=== PATIENT | male | born 1990 | race Caucasian/White ===

== ENCOUNTER 2016-12-08 19:00 | Emergency (ER) | payer SELFPAY ==
--- NOTE | 2016-12-08 20:29 | UC ---
Upper Extremity HPI - HPI Summary HPI Summary: 26 y/o female presents to the urgent care c/o RT shoulder pain for the past 3 weeks. He can't recall any injury to his shoulder. Pain started gradually and now is 8/10 w/ movement and 6/10 at rest. Pt has difficulty raising arm. Pt has been taking ibuprofen on and off to alleviate symptoms. Pt denies numbness and tingling over the arm or hand, fever, chest pain, N/V/D. - History of Current Complaint Chief Complaint: UCUpperExtremity Stated Complaint: SHOULDER INJURY Time Seen by Provider: 12/08/16 20:28 Hx Obtained From: Patient Onset/Duration: Gradual Onset, Lasting Weeks - 3 weeks, Still Present Severity Initially: Mild Severity Currently: Severe Pain Intensity: 8 Pain Scale Used: 0-10 Numeric Location Of Pain: Is Discrete @ - RT shoulder Character: Sharp - at times, Throbbing - at times Aggravating Factor(s): Movement, Lifting, Flexion, Extension Alleviating Factor(s): OTC Meds Associated Signs And Symptoms: Positive: Negative. Negative: Swelling, Redness , Fever, Weakness, Numbness/Tingling - Risk Factors Non-Orthopedic Risk Factor: Negative DVT Risk Factors: Negative Septic Arthritis Risk Factor: Negative - Allergies/Home Medications Allergies/Adverse Reactions: Allergies Allergy/AdvReac Type Severity Reaction Status Date / Time Tramadol Allergy Severe Anaphylatic Verified 12/08/16 19:49 Shock Home Medications: Home Medications Ibuprofen TAB* [Advil TAB*] 800 mg PO ONCE PRN 12/08/16 [History Confirmed 12/08] PMH/Surg Hx/FS Hx/Imm Hx Previously Healthy: Yes - Pt denies PMHX - Surgical History Surgical History: Yes Surgery Procedure, Year, and Place: ORIF RIGHT TIB/FIB - Family History Known Family History: Positive: Diabetes - Social History Occupation: Unemployed Lives: With Family Alcohol Use: Rare Substance Use Type: None Smoking Status (MU): Current Every Day Smoker Type: Cigarettes Amount Used/How Often: 1 PPD Review of Systems Constitutional: Negative Skin: Negative Eyes: Negative ENT: Negative Respiratory: Negative Cardiovascular: Negative Gastrointestinal: Negative Genitourinary: Negative Motor: Negative Neurovascular: Negative Musculoskeletal: Other: - RT shoulder pain Neurological: Negative Psychological: Negative Is Patient Immunocompromised?: No All Other Systems Reviewed And Are Negative: Yes Physical Exam Triage Information Reviewed: Yes Appearance: Well-Appearing, No Pain Distress, Well-Nourished, Obese Vital Signs: Initial Vital Signs Temp 98.7 F 12/08/16 19:45 Pulse 104 12/08/16 19:45 Resp 18 12/08/16 19:45 BP 158/89 12/08/16 19:45 Pulse Ox 97 12/08/16 19:45 Vital Signs Reviewed: Yes Eye Exam: Normal Eyes: Positive: Conjunctiva Clear - PERRLA, EOMI ENT Exam: Normal ENT: Positive: Normal ENT inspection, Hearing grossly normal, Pharynx normal, TMs normal Neck exam: Normal Neck: Positive: Supple, Nontender, No Lymphadenopathy Respiratory Exam: Normal Respiratory: Positive: Chest non-tender, Lungs clear, Normal breath sounds, No respiratory distress Cardiovascular Exam: Normal Cardiovascular: Positive: RRR, No Murmur, Pulses Normal, Brisk Capillary Refill Abdominal Exam: Normal Abdomen Description: Positive: Nontender, No Organomegaly, Soft. Negative: CVA Tenderness (R), CVA Tenderness (L) Bowel Sounds: Positive: Present Musculoskeletal Exam: Normal Musculoskeletal: Positive: No Edema, Other: - Shoulder: The R shoulder is without obvious asymmetry or deformity when compared to the L shoulder. No surface trauma, ecchymosis, crepitus. No bony deformity or prominence of humeral head. No erythema, warmth, swelling . NT to palpation over the clavicle, scapula, or humeral head.point tenderness over the acromoclavicular joint and to palpation of the bicipital groove . No tenderness to palpation of the muscles of the sternoclidomastoid, pectorals, bicepts/triceps, deltoid, trapezius, rhomboid, latissimus dorsi, rotator cuff. Pain and limitation with active or passive abduction/adduction, internal/external rotation, flexion/ extension. negative empty can and drop arm test No axillary tenderness or lympadenopathy. Normal sensation over the deltoid . Distal motor and neurovascular status is intact. Positve pulses and capillary refill brisk Neurological Exam: Normal Psychological Exam: Normal Skin Exam: Normal Upper Extremity Course/Dx - Course Course Of Treatment: 26 y/o female presents to the urgent care c/o RT shoulder pain for the past 3 weeks. He can't recall any injury to his shoulder. Pain started gradually and now is 8/10 w/ movement and 6/10 at rest. Pt has difficulty raising arm. Pt has been taking ibuprofen on and off to alleviate symptoms. Pt denies numbness and tingling over the arm or hand, fever, chest pain, N/V/D.HX obtained. Rt shoulder X-ray ordered, Impression:There was no fracture, dislocation, soft tissue swelling. Pt given Toradol IM inj to alleviate pain. Pt tolerated well IM inj. Pain decrease after 20min. Pt felt better. Pt probably with a frozen shoulder on examination, Pt shoulder immobilized with a shoulder sling.Rx Naproxen PO to alleviate pain. Given a PT referral and Orhtopedic referral for further evaluation and treatment. Pt's BP today is elevated, advised decrease salt in his diet, monitor his BP, if it continues to be elevated advised to f/u with his PCP for further management. Pt understood and agreed with plan of care. Pt left the clinic ambulating. - Differential Dx/Diagnosis Differential Diagnosis/HQI/PQRI: Arthritis, Contusion, Fracture (Closed), Strain , Sprain, Other - frozen shoulder, tendinopathy Provider Diagnoses: 1- RT shoulder pain. 2- Elevated BP w/o Hx of HTN Discharge - Discharge Plan Condition: Stable Disposition: HOME Prescriptions: Naproxen TAB* [Naprosyn 250 mg TAB*] 500 mg PO Q8H PRN #30 tab PRN Reason: Pain Patient Education Materials: Low Sodium Diet (ED), Shoulder Pain (ED) Referrals: Eddie Pascual MD [Medical Doctor] - 3 Days No Primary Care Phys,NOPCP [Primary Care Provider] - Additional Instructions: 1-Please take medications as directed to alleviate pain and swelling. 2-Please apply ice, keep your shoulder immobilized with the sling 3-Follow up PT referral for further evaluation and treatment 3- Please f/u with Orthopedic 3 days if not improvement of symptoms for further evaluation and treatment. 4- Your BP today is elevated, please decrease salt in your diet, monitor your BP , if it continues to be elevated please f/y with your PCP for further management.
--- NOTE | 2016-12-08 21:33 | RAD ---
Indication: RIGHT shoulder pain for 3 weeks. No preceding injury. Comparison: No relevant prior exams available on the [facility] PACS for comparison. Technique: Internal and external rotation AP and scapular Y views RIGHT shoulder Report: Normal acromioclavicular and glenohumeral joint alignment. Negative for fracture. No arthropathic change evident. Negative for stigmata of calcific tendinopathy. Unremarkable soft tissue contours. IMPRESSION: Negative radiographic exam of the RIGHT shoulder.
[2016-12-08] MEDS ORDERED: Ketorolac INJ* 60 MG/2 ML VIAL IM ONE (21:39)
[2016-12-08 21:58] VITALS: BP 148/85
== END 2016-12-08 22:02 | disposition home or self-care (01) ==
LOC: UCEAST 19:00
DX: M25.511 Pain in right shoulder (principal); R03.0 Elevated blood-pressure reading, without diagnosis of hypertension; E66.9 Obesity, unspecified; Z88.5 Allergy status to narcotic agent; F17.210 Nicotine dependence, cigarettes, uncomplicated
CPT/HCPCS: 96372; 99203; G0463; J1885

== ENCOUNTER 2017-05-07 19:25 | Emergency (ER) | payer SELFPAY ==
[2017-05-07 19:45] VITALS: BP 134/89
--- NOTE | 2017-05-07 19:55 | UC ---
Shoulder Pain HPI - HPI Summary HPI Summary: Pt presents with left shoulder pain s/p fall 3 days ago. He tells me that he slipped and fell on the ice 3 days ago and all of his weight landed on his left shoulder/arm. Did not hit his head. He had immediate pain, but slightly improved as the day progressed. Since that time has been taking ibuprofen and naproxen with little relief. The majority of his pain is in his lateral left shoulder. He denies numbness, tingling, arm or neck pain, or previous injury. - History of Current Complaint Hx Obtained From: Patient Onset/Duration: Sudden Onset Timing: Constant Severity Initially: Severe Severity Currently: Severe Pain Intensity: 8 Pain Scale Used: 0-10 Numeric Character: Dull, Aching, Stiffness Aggravating Factor(s): Movement, Lifting, Flexion Alleviating Factor(s): Rest <Shubham Perez - Last Filed: 05/08/17 17:45> <Omayra Villa - Last Filed: 05/09/17 07:13> - History of Current Complaint Chief Complaint: UCUpperExtremity Stated Complaint: SHOULDER PAIN Time Seen by Provider: 05/07/17 19:54 - Allergies/Home Medications Allergies/Adverse Reactions: Allergies Allergy/AdvReac Type Severity Reaction Status Date / Time MS Tramadol [Tramadol] Allergy Severe Anaphylatic Verified 05/07/17 19:46 Shock PMH/Surg Hx/FS Hx/Imm Hx Previously Healthy: Yes - Surgical History Surgical History: Yes Surgery Procedure, Year, and Place: ORIF RIGHT TIB/FIB - Family History Known Family History: Positive: Diabetes - Social History Occupation: Employed Full-time Lives: With Family Alcohol Use: Rare Substance Use Type: None Smoking Status (MU): Current Every Day Smoker Type: Cigarettes Amount Used/How Often: 1 PPD <Shubham Perez - Last Filed: 05/08/17 17:45> Review of Systems Constitutional: Negative Skin: Negative Respiratory: Negative Cardiovascular: Negative Neurovascular: Negative Musculoskeletal: Decreased ROM - left shoulder, Other: - Left shoulder pain Neurological: Negative Psychological: Negative All Other Systems Reviewed And Are Negative: Yes <Shubham Perez - Last Filed: 05/08/17 17:45> Physical Exam Triage Information Reviewed: Yes Appearance: Well-Appearing, No Pain Distress, Well-Nourished Vital Signs: Initial Vital Signs Temp 98.7 F 05/07/17 19:41 Pulse 97 05/07/17 19:41 Resp 16 05/07/17 19:41 BP 134/89 05/07/17 19:41 Pulse Ox 97 05/07/17 19:41 Vital Signs Reviewed: Yes Neck: Positive: Supple, No Lymphadenopathy, Other: - NTTP. FROM. Respiratory: Positive: Lungs clear, Normal breath sounds, No respiratory distress, No accessory muscle use Cardiovascular: Positive: RRR, No Murmur, Pulses Normal - Left radial and ulnar Musculoskeletal: Positive: No Edema - Left shoulder, Strength Limited @ - Left shoulder 4/5 compared to right, ROM Limited @ - Left shoulder due to pain. Flexion to 45 deg before pain., Other: - Left shoulder: TTP over lateral aspect of left shouler - around deltoid. No edema or obvious bony deformities. Negative apleys, apprehension, empty can, jaime-josh, near, monteiro, and yergason tests. Neurological: Positive: Alert, Other: - Sensations intact left C4-T1 Psychological: Positive: Age Appropriate Behavior Skin: Positive: Other - No erythema, abrasions, or ecchymosis left shoulder. Negative: rashes <Shubham Perez - Last Filed: 05/08/17 17:45> Vital Signs: Initial Vital Signs Temp 98.7 F 05/07/17 19:41 Pulse 97 05/07/17 19:41 Resp 16 05/07/17 19:41 BP 134/89 05/07/17 19:41 Pulse Ox 97 05/07/17 19:41 <Omayra Villa - Last Filed: 05/09/17 07:13> Shoulder Course/Dx - Course Course Of Treatment: Shoulder XR: IMPRESSION: No fracture of the left shoulder is noted. I suspect this is a shoulder contusion, but will provide him with a referral to orthopedics should his discomfort persist longer than 7-10days. Toradol IM in clinic today. Rx for flexeril at bedtime and meloxicam. I advised that he take at least one day off of work to rest and ice his shoulder, but he said that he is unable to do so and needs to work. - Differential Dx/Diagnosis Provider Diagnoses: Left shoulder pain. Fall <Shubham Perez - Last Filed: 05/08/17 17:45> Discharge <Shubham Peerz - Last Filed: 05/08/17 17:45> <Omayra Villa - Last Filed: 05/09/17 07:13> - Discharge Plan Condition: Stable Disposition: HOME Prescriptions: Cyclobenzaprine TAB* [Flexeril 10 MG TAB*] 10 mg PO BEDTIME PRN #10 tab PRN Reason: Pain Meloxicam 7.5 mg PO BID PRN #14 tablet PRN Reason: Pain Patient Education Materials: Shoulder Sprain (ED) Referrals: No Primary Care Phys,NOPCP [Primary Care Provider] - Dean Coats MD [Medical Doctor] - If Needed Additional Instructions: If you develop a fever, shortness of breath, chest pain, new or worsening symptoms - please call your PCP or go to the ED. Your blood pressure was high at todays visit. Please see your primary provider within 4 weeks for recheck and re-evaluation. 1) Ice your shoulder and rest as much as possible over the next 24-48 hours 2) Please do not take ibuprofen or naproxen in addition to Meloxicam as these medications are related and may interact. 3) If your symptoms worsen or persist greater than 7-10 days, please call orthopedics at the number below for a follow up appointment. Attestation Statement User Type: Provider - I was available for consult. This patient was seen by the advanced practice provider. The patient was not presented to, seen by, or examined by me.-Raysa <Omayra Villa - Last Filed: 05/09/17 07:13>
--- NOTE | 2017-05-07 20:12 | RAD ---
Indication: Fall, left shoulder pain. 4 views of left shoulder demonstrates no fracture. No other bone or joint abnormality is identified. IMPRESSION: No fracture of the left shoulder is noted.
[2017-05-07] MEDS ORDERED: Ketorolac INJ* 60 MG/2 ML VIAL IM ONE (20:19)
== END 2017-05-07 20:33 | disposition home or self-care (01) ==
LOC: UCEAST 19:25
DX: M25.512 Pain in left shoulder (principal); Z88.5 Allergy status to narcotic agent; F17.210 Nicotine dependence, cigarettes, uncomplicated
CPT/HCPCS: 96372; 99212; G0463; J1885

== ENCOUNTER 2017-05-28 18:17 | Emergency (ER) | payer SELFPAY ==
[2017-05-28 19:01] VITALS: BP 148/84
--- NOTE | 2017-05-28 20:30 | UC ---
Ciro Lindsey Natalie, scribed for Al Barnes MD on 05/28/17 at 1925 . Abdominal Pain Male HPI - HPI Summary HPI Summary: The pt is a 27 y/o M presenting to [facility] c/o swelling in right upper chest for two weeks, worsening since last night. The swelling doubled in size since yesterday. The pain is rated 7/10. The pain is aggravated by movement. Pt additionally c/o SOB. Pt denies abnormal urination and BM and injury to chest. - History of Current Complaint Chief Complaint: UCAbdominalPain Stated Complaint: SWELLING IN CHEST AREA Time Seen by Provider: 05/28/17 19:10 Hx Obtained From: Patient Onset/Duration: Lasting Weeks - started two weeks ago, Still Present, Worse Since - last night Timing: Constant Severity Initially: Moderate Severity Currently: Moderate Pain Intensity: 7 Pain Scale Used: 0-10 Numeric Location: Discrete At: RUQ - under right ribs Radiates: No Aggravating Factor(s): Movement Alleviating Factor(s): Nothing Associated Signs And Symptoms: Positive: Other - POSITIVE: SOB; NEGATIVE: abnormal urination and BM, injury to chest - Allergies/Home Medications Allergies/Adverse Reactions: Allergies Allergy/AdvReac Type Severity Reaction Status Date / Time bee venom protein (honey bee) Allergy Severe Hives Verified 05/28/17 19:01 tramadol Allergy Severe Anaphylatic Verified 05/28/17 19:01 Shock Home Medications: Home Medications Ibuprofen TAB* [Advil TAB*] 800 mg PO ONCE PRN 05/28/17 [History Confirmed 05/28] PMH/Surg Hx/FS Hx/Imm Hx - Surgical History Surgical History: Yes Surgery Procedure, Year, and Place: ORIF RIGHT TIB/FIB - Family History Known Family History: Positive: Diabetes - Social History Alcohol Use: Rare Substance Use Type: None Smoking Status (MU): Current Every Day Smoker Type: Cigarettes Amount Used/How Often: 1/2 PPD Review of Systems Respiratory: Shortness Of Breath Gastrointestinal: Abdominal Pain - swelling and pain in RUQ, Other - normal BM Genitourinary: Other - normal urination All Other Systems Reviewed And Are Negative: Yes Physical Exam - Summary Physical Exam Summary: General: well-appearing, mild pain distress Skin: warm, color reflects adequate perfusion, dry Head: normal Eyes: EOMI, CAROL ENT: normal Neck: supple, nontender Respiratory: CTA, breath sounds present Cardiovascular: RRR Abdomen: RUQ soft tissue swelling, tender to palpation, non-erythematous Bowel: present Musculoskeletal: normal, strength/ROM intact Neurological: normal, sensory/motor intact, A&O x3 Psychological: affect/mood appropriate Triage Information Reviewed: Yes Vital Signs: Initial Vital Signs Temp 98.5 F 05/28/17 18:57 Pulse 100 05/28/17 18:57 Resp 16 05/28/17 18:57 BP 148/84 05/28/17 18:57 Pulse Ox 100 05/28/17 18:57 Vital Signs Reviewed: Yes Abd Pain Male Course/Dx - Course Course Of Treatment: Medications reviewed. Allergies noted. BP noted and advised to follow up with PCP. TO FULLY EVALUATE THE PAIENT'S CONDITION, I WOULD DO BLOOD WORK AND A CONTRASTED CT; THESE ARE NOT AVAILABLE IN CLINIC AT THIS TIME. DISCUSSED WITH THE PATIENT TO GO TO THE ED FOR FURTHER EVAL. DISCUSSED GOING BY AMBULANCE, PATIENT PREFERS TO GO BY POV. - Differential Dx/Clinical Impression Provider Diagnoses: RUQ PAIN AND SWELLING Discharge - Discharge Plan Condition: Stable Disposition: HOME Patient Education Materials: Acute Abdominal Pain (ED), Shortness of Breath (ED ) Referrals: [facility] PHYSICIAN REFERRAL [Outside] No Primary Care Phys,NOPCP [Primary Care Provider] - Additional Instructions: GO DIRECTLY TO THE EMERGENCY DEPARTMENT FOR FURTHER EVALUATION OF YOUR ABDOMINAL PAIN AND SHORTNESS OF BREATH. YOUR BLOOD PRESSURE WAS ELEVATED TODAY; FOLLOW UP WITH YOUR PRIMARY CARE DOCTOR WITHIN ONE WEEK. The documentation as recorded by the Ciro quintana Natalie accurately reflects the service I personally performed and the decisions made by me, Al Barnes MD.
== END 2017-05-28 19:31 | disposition home or self-care (01) ==
LOC: UCEAST 18:17
DX: R10.11 Right upper quadrant pain (principal); R22.2 Localized swelling, mass and lump, trunk; R06.02 Shortness of breath; F17.210 Nicotine dependence, cigarettes, uncomplicated
CPT/HCPCS: 99212; G0463

== ENCOUNTER 2017-05-28 19:47 | Emergency (ER) | payer SELFPAY ==
[2017-05-28] MEDS ORDERED: NS 0.9% 1000 ML* 1,000 ML IV ONE (23:00)
[2017-05-28] MEDS ORDERED: Morphine INJ* 4 MG/ML 1 ML SYRINGE (NEW SYRINGE VERSION) IV ONE (23:00)
[2017-05-28] MEDS ORDERED: Ondansetron INJ* 2 MG/ML VIAL IV ONE (23:00)
[2017-05-28 23:31] LABS: ABS Basophils 0.1 10^3/ul (0-0.2); ABS Eosinophils 0.7 10^3/ul (0-0.6); ABS Lymphocytes 4.3 10^3/ul (1.0-4.8); ABS Monocytes 1.2 10^3/ul (0-0.8); ABS Neutrophils 7.9 10^3/ul (1.5-7.7); ABS Nucleated RBC 0 10^3/ul; Eosinophil % 5.1 % (0-6); Hematocrit 42 % (42-52); Hemoglobin 14.7 g/dl (14.0-18.0); Lymphocyte % 30.1 % (25-47); Mean Corpuscular HGB Conc 35 g/dl (31-36); Mean Corpuscular Hemoglobin 30 pg (27-31); Mean Corpuscular Volume 85 fL (80-94); Mean Platelet Volume 8 um3 (7.4-10.4); Nucleated Red Blood Cells % 0; Platelet Count 339 10^3/ul (150-450); Red Blood Count 4.95 10^6/ul (4.0-5.4); Red Cell Distribution Width 14 % (10.5-15); White Blood Count 14.2 10^3/ul (3.5-10.8)
[2017-05-28 23:42] LABS: INR 0.91 (0.77-1.02)
[2017-05-28 23:47] LABS: EGFR Non-African American 92.2 (>60)
[2017-05-29] MEDS ORDERED: Potassium Chlor TAB* 20 MEQ TAB.ER PO ONE (00:10)
[2017-05-29] MEDS ORDERED: Magnesium Sulfate 2 GM IV* 2 GM/50 ML BAG IVPB ONE (00:11)
[2017-05-29] MEDS ORDERED: Vancomycin(*) 1,000 MG in NS 0.9% 250 ML* 250 ML IVPB ONE (00:12)
[2017-05-29] MEDS ORDERED: Iohexol 300* (CONTRAST) 10 ML SDV IV ONE (00:13)
[2017-05-29] MEDS ORDERED: NS 0.9% w/ 40 Meq KCL 1000 ML* 1,000 ML IV SCH (01:00)
[2017-05-29] MEDS ORDERED: Metoclopramide IV* 5 MG/ML 2 ML VIAL IV SLOW PU ONE (01:11)
[2017-05-29] MEDS ORDERED: HYDROmorphone INJ* 1 MG/ML CARPUJECT SYRINGE IV SLOW PU ONE (01:11)
--- NOTE | 2017-05-29 03:02 | ED ---
Reg Lindsey Stephanie, scribed for Lana Blake MD on 05/28/17 at 2257 . Abdominal Pain/Male - HPI Summary HPI Summary: The pt is a 27 y/o M presenting to the ED with c/o RUQ abd pain that began 2 weeks ago. The pt states his pain has worsened significantly over the past few days. The pt denies N/V and fever. He states that last night his RUQ swelling doubled in size. - History of Current Complaint Chief Complaint: EDAbdPain Stated Complaint: ABD PAIN Time Seen by Provider: 05/28/17 21:42 Hx Obtained From: Patient Onset/Duration: Gradual Onset, Lasting Weeks - 2, Still Present Timing: Constant Severity Currently: Moderate Pain Intensity: 8 Pain Scale Used: 0-10 Numeric Location: Discrete At: RUQ Radiates: No Aggravating Factor(s): Nothing Alleviating Factor(s): Nothing Associated Signs And Symptoms: Positive: Other - RUQ edema. 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 Sensory History: Denies: Hx Legally Blind EENT History: Denies: Hx Deafness - Surgical History Surgery Procedure, Year, and Place: ORIF RIGHT TIB/FIB Infectious Disease History: No Infectious Disease History: Denies: Traveled Outside the [place] in Last 30 Days - Family History Known Family History: Positive: Cardiac Disease, Diabetes, Renal Disease - Social History Occupation: Employed Part-time Lives: With Family Alcohol Use: Rare Substance Use Type: Reports: None Smoking Status (MU): Current Every Day Smoker Type: Cigarettes Amount Used/How Often: 1/2 PPD Review of Systems Negative: Fever Positive: Abdominal Pain. Negative: Vomiting, Nausea All Other Systems Reviewed And Are Negative: Yes Physical Exam - Summary Physical Exam Summary: VITAL SIGNS: Reviewed. GENERAL: Patient is a well-developed and nourished MALE who is lying comfortable in the stretcher. Patient is not in any acute respiratory distress. HEAD AND FACE: No signs of trauma. No ecchymosis, hematomas or skull depressions. No sinus tenderness. EYES: PERRLA, EOMI x 2, No injected conjunctiva, no nystagmus. EARS: Hearing grossly intact. Ear canals and tympanic membranes are within normal limits. MOUTH: Oropharynx within normal limits. NECK: Supple, trachea is midline, no adenopathy, no JVD, no carotid bruit, no c- spine tenderness, neck with full ROM. CHEST: Symmetric, no tenderness at palpation LUNGS: Clear to auscultation bilaterally. No wheezing or crackles. CVS: Regular rate and rhythm, S1 and S2 present, no murmurs or gallops appreciated. ABDOMEN: Soft, non-tender. No signs of distention. No rebound no guarding, and no masses palpated. Bowel sounds are normal. EXTREMITIES: FROM in all major joints, no edema, no cyanosis or clubbing. NEURO: Alert and oriented x 3. No acute neurological deficits. Speech is normal and follows commands. SKIN: Dry and warm Triage Information Reviewed: Yes Vital Signs On Initial Exam: Initial Vitals Temp Pulse Resp BP Pulse Ox 97.8 F 101 16 183/81 99 05/28/17 19:54 05/28/17 19:54 05/28/17 19:54 05/28/17 19:54 05/28/17 19:54 Vital Signs Reviewed: Yes Diagnostics - Vital Signs Vital Signs Temp Pulse Resp BP Pulse Ox 05/28/17 22:00 89 150/71 98 05/28/17 21:49 84 97 05/28/17 21:46 141/81 05/28/17 19:54 97.8 F 101 16 183/81 99 - Laboratory Result Diagrams: 05/28/17 23:20 05/28/17 23:20 Lab Statement: Any lab studies that have been ordered have been reviewed, and results considered in the medical decision making process. - CT Chest/Abdomen/Pelvis CT Interpretation: No Acute Changes CT Interpretation Completed By: Radiologist - No acute pathology of the chest, abdomen or pelvis. 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 Abdominal Pain Fem Course/Dx - Course Course Of Treatment: The pt has a hx of Partter syndrome with chronic hypokalemia. He is supposed to be on KCL 40 MEAQ daily. However, the pt has not taken KCL for 1 month due to noncompliance. 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 Pt feels better in ED. ED physician reviewed imaging and lab tests with the pt. The pt is potassium depleted. Pt d/c home with KCL. - Diagnoses Provider Diagnoses: Rhabdomyolysis, Chronic hypokalemia Discharge - Discharge Plan Condition: Stable Disposition: HOME Prescriptions: Potassium Chlor TAB* [Potassium Chlor TAB 20 MEQ*] 40 meq PO DAILY #30 tab.er Patient Education Materials: Hypokalemia (ED), Rhabdomyolysis (ED) Forms: *Work Release Referrals: No Primary Care Phys,NOPCP [Primary Care Provider] - Additional Instructions: RETURN TO EMERGENCY DEPARTMENT FOR ANY NEW OR WORSENING SYMPTOMS The documentation as recorded by the Reg quintana Stephanie accurately reflects the service I personally performed and the decisions made by , Lana Blake MD.
[2017-05-29 03:16] VITALS: BP 130/75
--- NOTE | 2017-05-29 08:08 | RAD ---
INDICATION: 2 weeks of right upper quadrant pain COMPARISON: None. TECHNIQUE: Multidetector CT images of the chest, abdomen and pelvis were obtained from the lung apices to the ischial tuberosities following the injection of 145 mL Omnipaque 300. The patient received oral contrast as well.. CHEST: The lungs are clear. There are no large pleural effusions. There is no mediastinal or hilar lymphadenopathy. The heart and major vascular structures are grossly normal in appearance. ABDOMEN & PELVIS: The liver, spleen, pancreas and adrenal glands are grossly normal in appearance. The gallbladder is normal. The kidneys are normal in appearance without focal mass, calcification or signs of hydronephrosis. On the delayed phase images contrast is symmetrically and promptly excreted. Neural contrast has progressed as far as the distal small bowel which limits evaluation of the terminal ileum and colon. The small and large bowel are not distended. The appendix is normal in diameter measuring 5 mm with gas in the lumen. There is no gross retroperitoneal or mesenteric lymphadenopathy. The pelvic viscera is normal in appearance. The abdominal aorta and iliac arteries are normal in course and diameter. Degenerative changes of the thoracic and lumbar spine includes loss of intervertebral disc height at multiple levels. There are degenerative changes of the bilateral hips, advanced for the patient's age. The right hip exhibits a "cam deformity" appearance consistent with femoral acetabular impingement. IMPRESSION: 1. No acute abnormality that would account for the patient's current clinical presentation. 2. 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
== END 2017-05-29 03:20 | disposition home or self-care (01) ==
LOC: ED 19:47
DX: M62.82 Rhabdomyolysis (principal); E87.6 Hypokalemia; R10.11 Right upper quadrant pain; F17.210 Nicotine dependence, cigarettes, uncomplicated
CPT/HCPCS: 36415; 71260; 74177; 80053; 82550; 83605; 85025; 85610; 85730; 86140; 87040; 96374; 96375; 99284; A9270-GY; J1170; J2270; J2405; J2765; J3475; Q9967

== ENCOUNTER → 2017-06-08 13:42 | Emergency (ER) | payer SELFPAY ==
[~2017-06-08 13:42] MED LIST: HYDROmorphone INJ* 1 MG/ML CARPUJECT SYRINGE IV ONE; Magnesium Sulfate 2 GM IV* 2 GM/50 ML BAG IVPB ONE; NS 0.9% 1000 ML* 2,000 ML IV ONE; Ondansetron INJ* 2 MG/ML VIAL IV ONE; Pantoprazole IV* 40 MG IV ONE; oxyCODONE/Acetamin 5/325 MG* TAB PO ONE
--- NOTE | 2017-06-08 16:47 | RAD ---
HISTORY: Right upper quadrant pain. COMPARISONS: CT of the chest abdomen and pelvis dated May 29, 2017 at did not reveal any acute abnormalities. TECHNIQUE: Multiple transverse and longitudinal ultrasound images were obtained of the right upper quadrant. FINDINGS: LIVER: The liver is normal in dimensions and echogenicity. Normal hepatic and portal venous blood flow is duplicated with color flow imaging. There is no gross intrahepatic biliary duct dilatation. GALLBLADDER AND EXTRAHEPATIC BILIARY DUCT: The gallbladder is normal in appearance without intraluminal stones or other soft tissue masses. There is no pericholecystic fluid or gallbladder wall thickening. Overlying bowel gas prevented direct visualization of the common bile duct 4 diameter measurement. PANCREAS: Overlying bowel gas prevented reliable visualization of the pancreas. RIGHT KIDNEY: The right kidney is normal in size, morphology and echogenicity. AORTA AND IVC: The visualized portions are normal in appearance and not pathologically dilated. IMPRESSION: NO SONOGRAPHICALLY APPARENT ACUTE ABNORMALITY OF THE RIGHT UPPER QUADRANT. OVERLYING BOWEL GAS PREVENTED DIAMETER MEASUREMENT OF THE COMMON BILE DUCT AND EVALUATION OF THE PANCREAS.
--- NOTE | 2017-06-08 16:49 | RAD ---
INDICATION: Right anterior chest soft tissue swelling COMPARISON: None TECHNIQUE: Real time ultrasound images of the right anterior chest were acquired with rosen scale and Doppler color flow imaging. FINDINGS: There are no signs of infiltration, edema or fluid collection overlying the right anterior chest. IMPRESSION: Normal ultrasound of the right anterior chest.
[2017-06-08 17:12] LABS: ABS Basophils 0.2 10^3/ul (0-0.2); ABS Eosinophils 0.8 10^3/ul (0-0.6); ABS Lymphocytes 3.5 10^3/ul (1.0-4.8); ABS Monocytes 1.2 10^3/ul (0-0.8); ABS Neutrophils 9.1 10^3/ul (1.5-7.7); ABS Nucleated RBC 0 10^3/ul; Eosinophil % 5.3 % (0-6); Hematocrit 42 % (42-52); Hemoglobin 14.7 g/dl (14.0-18.0); Lymphocyte % 23.9 % (25-47); Mean Corpuscular HGB Conc 35 g/dl (31-36); Mean Corpuscular Hemoglobin 30 pg (27-31); Mean Corpuscular Volume 87 fL (80-94); Mean Platelet Volume 8 um3 (7.4-10.4); Nucleated Red Blood Cells % 0; Platelet Count 326 10^3/ul (150-450); Red Blood Count 4.84 10^6/ul (4.0-5.4); Red Cell Distribution Width 14 % (10.5-15); White Blood Count 14.7 10^3/ul (3.5-10.8)
[2017-06-08 17:23] LABS: INR 0.9 (0.77-1.02)
[2017-06-08 17:33] LABS: EGFR Non-African American 93.3 (>60)
--- NOTE | 2017-06-08 19:41 | ED ---
Jelani Lindsey Elizabeth, scribed for Al Barnes MD on 06/08/17 at 1514 . Abdominal Pain/Male - HPI Summary HPI Summary: The patient is a 27 year old male complaining of pain in RUQ that began a month ago. Patient notes that the pain has worsened in the last week. The patient additionally complains of shortness of breath. He says that nothing alleviates or aggravates his symptoms. The patient denies nausea, abnormal stool, dysuria, or edema in the ankles. Patient was seen in the ED 1 week ago with the same complaint. - History of Current Complaint Chief Complaint: EDGeneral Stated Complaint: FLANK PAIN Time Seen by Provider: 06/08/17 15:02 Hx Obtained From: Patient Onset/Duration: Lasting Weeks, Still Present, Worse Since - 1 week ago Timing: Constant Severity Currently: Moderate Pain Intensity: 8 Pain Scale Used: 0-10 Numeric Location: Discrete At: RUQ Aggravating Factor(s): Nothing Alleviating Factor(s): Nothing Associated Signs And Symptoms: Negative: Urinary Symptoms, Nausea - Allergies/Home Medications Allergies/Adverse Reactions: Allergies Allergy/AdvReac Type Severity Reaction Status Date / Time bee venom protein (honey bee) Allergy Severe Hives Verified 06/08/17 14:00 tramadol Allergy Severe Anaphylatic Verified 06/08/17 14:00 Shock PMH/Surg Hx/FS Hx/Imm Hx Endocrine/Hematology History: Denies: Hx Diabetes Cardiovascular History: Denies: Hx Hypertension History: 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 Denies: Hx Renal Disease Sensory History: Denies: Hx Legally Blind, Hx Deafness Opthamlomology History: Denies: Hx Legally Blind - Surgical History Surgery Procedure, Year, and Place: ORIF RIGHT TIB/FIB Infectious Disease History: Yes Infectious Disease History: Denies: Traveled Outside the [place] in Last 30 Days - Family History Known Family History: Positive: Cardiac Disease, Diabetes, Renal Disease - Social History Alcohol Use: Rare Substance Use Type: Reports: None Smoking Status (MU): Current Every Day Smoker Type: Cigarettes Amount Used/How Often: 1/2 PPD Review of Systems Positive: Abdominal Pain - in RUQ. Negative: Diarrhea, Nausea Negative: dysuria Negative: Edema - NEGATIVE EDEMA OF THE ANKLES All Other Systems Reviewed And Are Negative: Yes Physical Exam - Summary Physical Exam Summary: General: well-appearing, mild pain distress Skin: warm, color reflects adequate perfusion, dry Head: normal Eyes: EOMI, CAROL ENT: normal Neck: supple, nontender Respiratory: CTA, breath sounds present Cardiovascular: RRR Abdomen: soft, right lower anterior chest swelling, RUQ tender to palpation Bowel: present Musculoskeletal: normal, strength/ROM intact Neurological: normal, sensory/motor intact, A&O x3 Psychological: affect/mood appropriate Triage Information Reviewed: Yes Vital Signs On Initial Exam: Initial Vitals Temp Pulse Resp BP Pulse Ox 97.8 F 110 20 162/82 98 06/08/17 13:45 06/08/17 13:45 06/08/17 13:45 06/08/17 13:45 06/08/17 13:45 Vital Signs Reviewed: Yes Diagnostics - Vital Signs Vital Signs Temp Pulse Resp BP Pulse Ox 06/08/17 13:45 97.8 F 110 20 162/82 98 - Laboratory Lab Results: Lab Results 06/08/17 06/08/17 06/08/17 Range/Units 16:53 16:53 16:53 WBC 14.7 H (3.5-10.8) 10^3/ul RBC 4.84 (4.0-5.4) 10^6/ul Hgb 14.7 (14.0-18.0) g/dl Hct 42 (42-52) % MCV 87 (80-94) fL MCH 30 (27-31) pg MCHC 35 (31-36) g/dl RDW 14 (10.5-15) % Plt Count 326 (150-450) 10^3/ul MPV 8 (7.4-10.4) um3 Neut % (Auto) 61.9 (38-83) % Lymph % (Auto) 23.9 L (25-47) % Gilchrist % (Auto) 7.9 H (0-7) % Eos % (Auto) 5.3 (0-6) % Baso % (Auto) 1.0 (0-2) % Absolute Neuts (auto) 9.1 H (1.5-7.7) 10^3/ul Absolute Lymphs (auto) 3.5 (1.0-4.8) 10^3/ul Absolute Monos (auto) 1.2 H (0-0.8) 10^3/ul Absolute Eos (auto) 0.8 H (0-0.6) 10^3/ul Absolute Basos (auto) 0.2 (0-0.2) 10^3/ul Absolute Nucleated RBC 0 10^3/ul Nucleated RBC % 0 INR (Anticoag Therapy) 0.90 (0.77-1.02) Sodium 134 (133-145) mmol/L Potassium 2.8 L (3.5-5.0) mmol/L Chloride 96 L (101-111) mmol/L Carbon Dioxide 29 (22-32) mmol/L Anion Gap 9 (2-11) mmol/L BUN 18 (6-24) mg/dL Creatinine 0.96 (0.67-1.17) mg/dL Est GFR ( Amer) 119.9 (>60) Est GFR (Non-Af Amer) 93.3 (>60) BUN/Creatinine Ratio 18.8 (8-20) Glucose 104 H (70-100) mg/dL Lactic Acid (0.5-2.0) mmol/L Calcium 9.8 (8.6-10.3) mg/dL Magnesium 1.2 L (1.9-2.7) mg/dL Total Bilirubin 0.30 (0.2-1.0) mg/dL AST 38 (13-39) U/L ALT 49 (7-52) U/L Alkaline Phosphatase 50 (34-104) U/L C-Reactive Protein 8.95 H (< 5.00) mg/L Total Protein 7.7 (6.4-8.9) g/dL Albumin 4.1 (3.2-5.2) g/dL Globulin 3.6 (2-4) g/dL Albumin/Globulin Ratio 1.1 (1-3) Lipase 53 (11.0-82.0) U/L Cortisol 4.07 mcg/dL Ur Random Creatinine mg/dL Urine Potassium 06/08/17 06/08/17 Range/Units 16:53 18:56 WBC (3.5-10.8) 10^3/ul RBC (4.0-5.4) 10^6/ul Hgb (14.0-18.0) g/dl Hct (42-52) % MCV (80-94) fL MCH (27-31) pg MCHC (31-36) g/dl RDW (10.5-15) % Plt Count (150-450) 10^3/ul MPV (7.4-10.4) um3 Neut % (Auto) (38-83) % Lymph % (Auto) (25-47) % Gilchrist % (Auto) (0-7) % Eos % (Auto) (0-6) % Baso % (Auto) (0-2) % Absolute Neuts (auto) (1.5-7.7) 10^3/ul Absolute Lymphs (auto) (1.0-4.8) 10^3/ul Absolute Monos (auto) (0-0.8) 10^3/ul Absolute Eos (auto) (0-0.6) 10^3/ul Absolute Basos (auto) (0-0.2) 10^3/ul Absolute Nucleated RBC 10^3/ul Nucleated RBC % INR (Anticoag Therapy) (0.77-1.02) Sodium (133-145) mmol/L Potassium (3.5-5.0) mmol/L Chloride (101-111) mmol/L Carbon Dioxide (22-32) mmol/L Anion Gap (2-11) mmol/L BUN (6-24) mg/dL Creatinine (0.67-1.17) mg/dL Est GFR ( Amer) (>60) Est GFR (Non-Af Amer) (>60) BUN/Creatinine Ratio (8-20) Glucose (70-100) mg/dL Lactic Acid 1.1 (0.5-2.0) mmol/L Calcium (8.6-10.3) mg/dL Magnesium (1.9-2.7) mg/dL Total Bilirubin (0.2-1.0) mg/dL AST (13-39) U/L ALT (7-52) U/L Alkaline Phosphatase (34-104) U/L C-Reactive Protein (< 5.00) mg/L Total Protein (6.4-8.9) g/dL Albumin (3.2-5.2) g/dL Globulin (2-4) g/dL Albumin/Globulin Ratio (1-3) Lipase (11.0-82.0) U/L Cortisol mcg/dL Ur Random Creatinine 73.64 mg/dL Urine Potassium Pending Result Diagrams: 06/08/17 16:53 06/08/17 16:53 Lab Statement: Any lab studies that have been ordered have been reviewed, and results considered in the medical decision making process. - Additional Comments Diagnostic Additional Comments: Gallbladder Ultrasound Interpreted by radiologist. IMPRESSION: NO SONOGRAPHICALLY APPARENT ACUTE ABNORMALITY OF THE RIGHT UPPER QUADRANT. OVERLYING BOWEL GAS PREVENTED DIAMETER MEASUREMENT OF THE COMMON BILE DUCT AND EVALUATION OF THE PANCREAS. Dr. Barnes has reviewed this report. Chest Ultrasound Interpreted by radiologist. IMPRESSION: Normal ultrasound of the right anterior chest. Dr. Barnes has reviewed this report. Abdominal Pain Fem Course/Dx - Course Course Of Treatment: DISCUSSED RESULTS WITH PATIENT AND HIS PARTNER. 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 WILL START SPIRONOLACTONE, CONTINE K AND MG SUPPLEMENTATION, F/U PMD. FOR THE ABD PAIN WILL RX PPI AND PERCOCET. THE SWOLLEN AREA IN HIS RT LOWER ANTERIOR CHEST IS TENDER AND WBC IS 14K. WILL TRY RX KEFLEX. DISCUSSED FINDING A PMD AND POTENTIALLY A FIELD TECHNICIAN FOR FURTHER TREATMENT. RETURN IF WORSE. - Diagnoses Provider Diagnoses: Abdominal pain, Bartter syndrome Discharge - Discharge Plan Condition: Stable Disposition: HOME Prescriptions: Cephalexin CAP* [Keflex CAP*] 500 mg PO QID #40 cap Omeprazole CAP* [Prilosec CAP* 20 MG] 20 mg PO BID #30 cap. oxyCODONKrystyna/Acetamin 5/325 MG* [Percocet 5/325 TAB*] 1 tab PO Q4H PRN #30 tab MDD 6 PRN Reason: Pain Spironolactone TAB* [Aldactone TAB 25 MG*] 25 mg PO DAILY #30 tab Patient Education Materials: Syndrome of Inappropriate Antidiuretic Hormone Secretion (ED), Abdominal Pain (ED) Referrals: [facility] [Outside] Additional Instructions: FOLLOW UP WITH YOUR PRIMARY CARE DOCTOR. YOU MAY NEED FOLLOW UP WITH A FIELD TECHNICIAN FOR YOUR BARTTERS SYNDROME. CONTINUE YOUR POTASSIUM AND MAGNESIUM SUPPLEMENTS. RETURN TO THE EMERGENCY DEPARTMENT FOR ANY WORSENING OF YOUR CONDITION OR QUESTIONS OR CONCERNS. YOUR BLOOD PRESSURE WAS ELEVATED TODAY; FOLLOW UP WITH YOUR PRIMARY CARE DOCTOR WITHIN ONE WEEK The documentation as recorded by the Jelani quintana Elizabeth accurately reflects the service I personally performed and the decisions made by me, Al Barnes MD.
[2017-06-08 19:50] VITALS: BP 135/74
== END | disposition home or self-care (01) ==
LOC: ED 13:42
DX: R10.11 Right upper quadrant pain (principal); E26.81 Bartter's syndrome; F17.210 Nicotine dependence, cigarettes, uncomplicated; Z88.5 Allergy status to narcotic agent
CPT/HCPCS: 36415; 76604; 76705; 80053; 82088; 82533; 82570; 83605; 83690; 83735; 84133; 85025; 85610; 86140; 96361; 96365; 96375; 99282; A9270-GY; J1170; J2405; J3475

== ENCOUNTER 2019-02-09 10:50 | Emergency (ER) | payer OTHER ==
--- NOTE | 2019-02-09 11:51 | ED ---
Back Pain - HPI Summary HPI Summary: This patient is a 28 year old M presenting to ED with a chief complaint of lower back pain since 0700 this morning. Patient woke up this morning, stood up straight, heard snap, crackle, pop, and now has back pain. He states it hurts to breathe, walk, and stand. He states it is worse on the left side. He reports taking Tylenol and Ibuprofen at 0830 without effect. He denies a history of DM and IVDA. He reports having a history of Bartter syndrome but has not been taking medication since he just moved here and has not had an opportunity to be set up with a primary care provider. The patient rates the pain 10/10 in severity. Symptoms aggravated by nothing. Symptoms alleviated by nothing. Patient reports mild numbness above the butt. Patient denies weakness and numbness in the legs, fever, constipation, bowel or urinary incontinence, numbness between the butt and penis, shooting pains down leg. Medications reviewed. Allergies noted. - History of Current Complaint Chief Complaint: EDBackInjuryPain Stated Complaint: SEVERE BACK PAIN, AND SOB PER PT Time Seen by Provider: 02/09/19 11:42 Hx Obtained From: Patient Onset/Duration: Sudden Onset, Lasting Hours - Since 0700 this morning, Still Present Onset/Duration: Started Hours Ago - Since 0700 this morning, Still Present Timing: Constant, Lasting Hours - Since 0700 this morning Back Pain Location: Is Diffuse - Low back, left worse than right Severity Initially: Severe Severity Currently: Severe Pain Intensity: 10 Pain Scale Used: 0-10 Numeric Aggravating Symptom(s): Nothing Alleviating Symptom(s): Nothing Associated Signs And Symptoms: Negative: Fever, Numbness, Bladder Incontinence, Bowel Incontinence - Allergies/Home Medications Allergies/Adverse Reactions: Allergies Allergy/AdvReac Type Severity Reaction Status Date / Time bee venom protein (honey bee) Allergy Severe Hives Verified 02/09/19 10:55 tramadol Allergy Severe Anaphylatic Verified 02/09/19 10:55 Shock morphine Allergy Itching Verified 02/09/19 10:55 PMH/Surg Hx/FS Hx/Imm Hx Endocrine/Hematology History: Denies: Hx Diabetes Cardiovascular History: Denies: Hx Hypertension History: 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 Denies: Hx Renal Disease Sensory History: Denies: Hx Legally Blind, Hx Deafness Opthamlomology History: Denies: Hx Legally Blind - Surgical History Surgery Procedure, Year, and Place: ORIF RIGHT TIB/FIB Infectious Disease History: No Infectious Disease History: Denies: Traveled Outside the [place] in Last 30 Days - Family History Known Family History: Positive: Cardiac Disease, Diabetes, Renal Disease - Social History Alcohol Use: Rare Hx Substance Use: No Substance Use Type: Reports: None Hx Tobacco Use: Yes Smoking Status (MU): Current Every Day Smoker Type: Cigarettes Amount Used/How Often: 1/2 PPD Review of Systems Negative: Fever Respiratory: Other - Difficulty breathing dt pain Gastrointestinal: Negative - Constipation Negative: incontinence Neurological: Negative - Numbness or weakness in legs, numbness between butt and penis, shooting pain down leg, Other - Mild numbness above the butt All Other Systems Reviewed And Are Negative: Yes Physical Exam - Summary Physical Exam Summary: Constitutional: Well-developed, Well-nourished, Alert. (-) Distressed Skin: Warm, Dry HENT: Normocephalic; Atraumatic Eyes: Conjunctiva normal Neck: Musculoskeletal ROM normal neck. (-) JVD, (-) Stridor, (-) Tracheal deviation Cardio: Rhythm regular, rate normal, Heart sounds normal; Intact distal pulses; Radial pulses are 2+ and symmetric. (-) Murmur Pulmonary/Chest wall: Effort normal. (-) Respiratory distress, (-) Wheezes, (-) Rales Abd: Soft, (-) tenderness, (-) Distension, (-) Guarding, (-) Rebound Musculoskeletal: limited range of motion and extension of legs, able to raise both legs off ground, negative straight leg raise, tenderness in left lower back Lymph: (-) Cervical adenopathy Neuro: Alert, Oriented x3 Psych: Mood and affect Normal Triage Information Reviewed: Yes Vital Signs On Initial Exam: Initial Vitals Temp Pulse Resp BP Pulse Ox 99.5 F 98 20 114/87 99 02/09/19 10:51 02/09/19 10:51 02/09/19 10:51 02/09/19 10:51 02/09/19 10:51 Vital Signs Reviewed: Yes Procedures - Sedation Patient Received Moderate/Deep Sedation with Procedure: No Diagnostics - Vital Signs Vital Signs Temp Pulse Resp BP Pulse Ox 02/09/19 10:51 99.5 F 98 20 114/87 99 - Laboratory Result Diagrams: 02/09/19 12:06 02/09/19 12:06 Lab Statement: Any lab studies that have been ordered have been reviewed, and results considered in the medical decision making process. - EKG 1432 Cardiac Rate: NL - 90 BPM EKG Rhythm: Sinus Rhythm Summary of EKG Findings: NSR at 90 BPM, no evidence of any U-waves or interval abnormalities. Dr. Garcia has reviewed and interpreted this EKG. Re-Evaluation - Re-Evaluation First Eval Re-Evaluation Time: 13:48 Comment: Discussed results with patient. Patient reports still having back pain. His potassium and magnesium are low so I will initiate IV access. Second Eval Re-Evaluation Time: 16:51 Comment: Discussed results with patient. Patient will be discharged home with dx of hypomagnesemia, hypokalemia, lower back pain. Patient understands and agrees with this plan. Back Pain Course/Dx - Course Course Of Treatment: Patient is here with acute lower back pain. Patient has no red flag symptoms of back pain and likely suffering from a muscle spasm versus herniated disc. Patient did not need MRI of his spine. Patient was given Ativan, Flexeril, and Toradol for his pain. In addition, patient's been off his medicine for the past month. 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 Patient is found to have low magnesium and potassium and was repleted both IV and by mouth for those. Patient had no EKG changes. Patient was discharged with Flexeril, lidocaine patches, Aldactone , potassium, magnesium which he was on until month ago. Patient is given care connections for follow-up. - Diagnoses Provider Diagnoses: Hypomagnesemia, Hypokalemia, Lower back pain Discharge ED - Sign-Out/Discharge Documenting (check all that apply): Patient Departure - Discharge - Discharge Plan Condition: Stable Disposition: HOME Prescriptions: Cyclobenzaprine TAB* [Flexeril 10 MG TAB*] 10 mg PO BID PRN #12 tab MDD 2 tablets PRN Reason: muscle spasm Ibuprofen TAB* [Motrin TAB* 600 MG] 600 mg PO Q8H PRN #30 tab PRN Reason: Pain - Mild Lidocaine PATCH 5%* [Lidoderm 5% Patch*] 1 patch TRANSDERM DAILY 5 Days #5 patch Magnesium Chloride EC TAB* [Slow Mag EC TAB*] 64 mg PO DAILY 30 Days #30 tab.ec Potassium Chlor TAB* [Potassium Chlor TAB 20 MEQ*] 40 meq PO DAILY 30 Days #30 tab.er Spironolactone TAB* [Aldactone TAB*] 25 mg PO DAILY 30 Days #30 tab Patient Education Materials: Hypokalemia (ED), Hypomagnesemia (ED), Back Pain ( ED) Forms: *Work Release Referrals: [facility] [Outside] - 3 Days Additional Instructions: PLEASE RETURN TO EMERGENCY DEPARTMENT FOR ANY NEW OR WORSENING SYMPTOMS. Please follow up with the [facility] and they will set you up with a primary care physician. - Billing Disposition and Condition Condition: STABLE Disposition: Home - Attestation Statements Document Initiated by Ritchie: Yes Documenting Scribe: Martin Pollard Provider For Whom Ritchie is Documenting (Include Credential): Pranay Garcia MD Scribe Attestation: Martin Lindsey, scribed for Pranay Garcia MD on 02/09/19 at 1758. Scribe Documentation Reviewed: Yes Provider Attestation: The documentation as recorded by the Martin quintana accurately reflects the service I personally performed and the decisions made by me, Pranay Garcia MD Status of Scribandrew Document: Viewed
[2019-02-09] MEDS ORDERED: LORazepam TAB(*) 1 MG PO ONE (11:52)
[2019-02-09 12:16] LABS: ABS Basophils 0.1 10^3/ul (0-0.2); ABS Eosinophils 0.5 10^3/ul (0-0.6); ABS Lymphocytes 2.6 10^3/ul (1.0-4.8); ABS Monocytes 0.7 10^3/ul (0-0.8); ABS Neutrophils 6.4 10^3/ul (1.5-7.7); Eosinophil % 4.5 %; Hematocrit 41 % (42-52); Hemoglobin 13.8 g/dL (14.0-18.0); Lymphocyte % 25.4 %; Mean Corpuscular HGB Conc 34 g/dL (31-36); Mean Corpuscular Hemoglobin 29 pg (27-31); Mean Corpuscular Volume 85 fL (80-94); Mean Platelet Volume 7.3 fL (7.4-10.4); Nucleated Red Blood Cells % 0.1; Platelet Count 389 10^3/uL (150-450); Red Blood Count 4.78 10^6 /uL (4.18-5.48); Red Cell Distribution Width 15 % (10-15); White Blood Count 10.4 10^3/uL (3.5-10.8)
[2019-02-09 12:49] LABS: BUN/Creatinine Ratio 15.1 (8-20); Calcium 10.8 mg/dL (8.6-10.3); EGFR African American 127.2 (>60); EGFR Non-African American 105.1 (>60); Magnesium 1.2 mg/dL (1.9-2.7); Potassium 2.8 mmol/L (3.5-5.0)
[2019-02-09] MEDS ORDERED: Potassium Chlor TAB* 20 MEQ TAB.ER PO ONE (13:17)
[2019-02-09] MEDS ORDERED: KCL 20 MEQ/100 ML IVPREMIX* 20 MEQ/100 ML BAG IV ONE (13:17)
[2019-02-09] MEDS ORDERED: Magnesium Sulfate 2 GM IV* 2 GM/50 ML BAG IVPB ONE (13:17)
[2019-02-09] MEDS ORDERED: Ketorolac INJ* 30 MG/ML 1 ML VIAL IV ONE (14:05)
[2019-02-09] MEDS ORDERED: Cyclobenzaprine TAB* 10 MG PO ONE (16:30)
[2019-02-09 17:23] VITALS: BP 120/68
== END 2019-02-09 17:30 | disposition home or self-care (01) ==
LOC: ED 10:50
DX: E83.42 Hypomagnesemia (principal); E87.6 Hypokalemia; M54.5 Low back pain; Z88.5 Allergy status to narcotic agent; Z91.030 Bee allergy status; F17.210 Nicotine dependence, cigarettes, uncomplicated
CPT/HCPCS: 36415; 80048; 83735; 85025; 93005; 96365; 96366; 96375; 99283; A9270-GY; J1885; J3475; J3480

== ENCOUNTER 2019-03-23 21:11 | Emergency (ER) | payer OTHER ==
[2019-03-23 21:35] LABS: ABS Basophils 0.1 10^3/ul (0-0.2); ABS Eosinophils 0.6 10^3/ul (0-0.6); ABS Lymphocytes 3.5 10^3/ul (1.0-4.8); ABS Neutrophils 5.5 10^3/ul (1.5-7.7); Eosinophil % 5.3 %; Hematocrit 38 % (42-52); Hemoglobin 13.3 g/dL (14.0-18.0); Lymphocyte % 32.5 %; Mean Corpuscular HGB Conc 35 g/dL (31-36); Mean Corpuscular Hemoglobin 30 pg (27-31); Mean Corpuscular Volume 85 fL (80-94); Mean Platelet Volume 7.8 fL (7.4-10.4); Nucleated Red Blood Cells % 0.1; Platelet Count 382 10^3/uL (150-450); Red Cell Distribution Width 15 % (10-15); White Blood Count 10.7 10^3/uL (3.5-10.8)
[2019-03-23 21:39] LABS: INR 0.99 (0.82-1.09)
--- NOTE | 2019-03-23 21:51 | ED ---
HPI Chest Pain - HPI Summary HPI Summary: Pt is a 29 y/o M presenting to the ED with a chief complaint of chest pain initially onset around 0600 on 03/23/19 that has progressively worsened throughout the day. He describes it as sharp and stabbing, states it is worse with deep breaths and movement, and alleviated by nothing. He denies SOB, cough , fever, and n/v/d. He took IBU and tried resting w/o relief. 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 - History of Current Complaint Chief Complaint: EDChestPainROMI Time Seen by Provider: 03/23/19 21:35 Hx Obtained From: Patient Onset/Duration: Started Hours Ago, Still Present Timing: Constant, Lasting Hours Initial Severity: Moderate Current Severity: Severe Pain Intensity: 8 Pain Scale Used: 0-10 Numeric Chest Pain Location: Mid Sternal Chest Pain Radiates: No Character: Sharp/Stabbing Aggravating Factor(s): Movement, Deep Breaths Alleviating Factor(s): Nothing Associated Signs and Symptoms: Positive: Chest Pain. Negative: Shortness of Breath, Fever, Nausea, Cough, Vomiting - Allergy/Home Medications Allergies/Adverse Reactions: Allergies Allergy/AdvReac Type Severity Reaction Status Date / Time bee venom protein (honey bee) Allergy Severe Hives Verified 02/09/19 10:55 tramadol Allergy Severe Anaphylatic Verified 02/09/19 10:55 Shock morphine Allergy Itching Verified 02/09/19 10:55 PMH/Surg Hx/FS Hx/Imm Hx Previously Healthy: Yes Endocrine/Hematology History: Reports: Other Endocrine/Hematological Disorders - bartter syndrome Denies: Hx Diabetes Cardiovascular History: Denies: Hx Hypertension History: 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 Denies: Hx Renal Disease Sensory History: Denies: Hx Legally Blind, Hx Deafness Opthamlomology History: Denies: Hx Legally Blind - Surgical History Surgery Procedure, Year, and Place: ORIF RIGHT TIB/FIB Infectious Disease History: No Infectious Disease History: Denies: Traveled Outside the [place] in Last 30 Days - Family History Known Family History: Positive: Cardiac Disease, Diabetes, Renal Disease - Social History Alcohol Use: Rare Hx Substance Use: No Substance Use Type: Reports: Marijuana Hx Tobacco Use: Yes Smoking Status (MU): Current Every Day Smoker Type: Cigarettes Amount Used/How Often: 1/2 PPD Review of Systems - ROS Summary Review of Systems Summary: Home Medications Medication Instructions Recorded Confirmed Type Ibuprofen TAB* [Advil TAB*] 800 mg PO ONCE PRN 05/28/17 05/28/17 History Potassium Chlor TAB* [Potassium 40 meq PO DAILY #30 tab.er 05/29/17 Rx Chlor TAB 20 MEQ*] Cephalexin CAP* [Keflex CAP*] 500 mg PO QID #40 cap 06/08/17 Rx Omeprazole CAP (NF) [Prilosec CAP* 20 mg PO BID #30 cap.dr 06/08/17 Rx 20 MG] Spironolactone TAB* [Aldactone TAB 25 mg PO DAILY #30 tab 06/08/17 Rx 25 MG*] oxyCODONE/Acetamin 5/325 MG* 1 tab PO Q4H PRN #30 tab MDD 6 06/08/17 Rx [Percocet 5/325 TAB*] Cyclobenzaprine TAB* [Flexeril 10 10 mg PO BID PRN #12 tab MDD 2 02/09/19 Rx MG TAB*] tablets Ibuprofen TAB* [Motrin TAB* 600 MG] 600 mg PO Q8H PRN #30 tab 02/09/19 Rx Lidocaine PATCH 5%* [Lidoderm 5% 1 patch TRANSDERM DAILY 5 Days #5 02/09/19 Rx Patch*] patch Magnesium Chloride EC TAB* [Slow 64 mg PO DAILY 30 Days #30 tab.ec 02/09/19 Rx Mag EC TAB*] Potassium Chlor TAB* [Potassium 40 meq PO DAILY 30 Days #30 tab.er 02/09/19 Rx Chlor TAB 20 MEQ*] Spironolactone TAB* [Aldactone 25 mg PO DAILY 30 Days #30 tab 02/09/19 Rx TAB*] Negative: Fever Positive: Chest Pain Negative: Shortness Of Breath, Cough Negative: Vomiting, Diarrhea, Nausea All Other Systems Reviewed And Are Negative: Yes Physical Exam - Summary Physical Exam Summary: General: Well-developed, Well-nourished male. No acute distress. HEENT: Normocephalic, Atraumatic. Eyes: Conjuctiva normal, PERRL. Oropharynx: Clear, mucous membranes moist, (-) exudates. Neck: Soft, FROM, (-) lymphadenopathy, (-) thyromegaly, (-) JVD. Cardiovascular: Normal sinus rhythm, (-) murmur. Lungs: Clear to auscultation bilaterally (-) wheezes, (-) rales, (-) rhonchi. Abdomen: Soft, non-tender, non-distended, (-) organomegaly, normal bowel sounds. Back: (-) CVA tenderness Extremities: No edema. Skin: Warm, dry, (-) rash. Neuro: Alert and oriented x3, no focal deficits. Psychiatric: Mood normal, affect normal. Triage Information Reviewed: Yes Vital Signs On Initial Exam: Initial Vitals Temp Pulse Resp BP Pulse Ox 98.4 F 86 20 139/71 98 03/23/19 21:20 03/23/19 21:20 03/23/19 21:20 03/23/19 21:20 03/23/19 21:20 Vital Signs Reviewed: Yes Procedures - Sedation Patient Received Moderate/Deep Sedation with Procedure: No Diagnostics - Vital Signs Vital Signs Temp Pulse Resp BP Pulse Ox 03/23/19 21:20 98.4 F 86 20 139/71 98 - Laboratory Lab Results: Lab Results 03/23/19 03/23/19 Range/Units 21:25 21:25 WBC 10.7 (3.5-10.8) 10^3/uL RBC 4.50 (4.18-5.48) 10^6 /uL Hgb 13.3 L (14.0-18.0) g/dL Hct 38 L (42-52) % MCV 85 (80-94) fL MCH 30 (27-31) pg MCHC 35 (31-36) g/dL RDW 15 (10-15) % Plt Count 382 (150-450) 10^3/uL MPV 7.8 (7.4-10.4) fL Neut % (Auto) 51.2 % Lymph % (Auto) 32.5 % [place] % (Auto) 9.7 % Eos % (Auto) 5.3 % Baso % (Auto) 1.3 % Absolute Neuts (auto) 5.5 (1.5-7.7) 10^3/ul Absolute Lymphs (auto) 3.5 (1.0-4.8) 10^3/ul Absolute Monos (auto) 1.0 H (0-0.8) 10^3/ul Absolute Eos (auto) 0.6 (0-0.6) 10^3/ul Absolute Basos (auto) 0.1 (0-0.2) 10^3/ul Absolute Nucleated RBC 0.0 10^3/ul Nucleated RBC % 0.1 INR (Anticoag Therapy) 0.99 (0.82-1.09) Result Diagrams: 03/23/19 21:25 03/23/19 21:25 Lab Statement: Any lab studies that have been ordered have been reviewed, and results considered in the medical decision making process. - Radiology CXR Radiology Interpretation Completed By: ED Physician Summary of Radiographic Findings: No infiltrate. No pleural effusion. Pending official radiology report. - EKG 2115 Cardiac Rate: NL - 90bpm EKG Rhythm: Sinus Rhythm ST Segment: Normal Ectopy: None Summary of EKG Findings: EKG at 2115 reveals normal sinus rhythm with rate of 90 BPM, no acute changes, no ischemic changes. This EKG was reviewed and interpreted by Dr. Lee. Re-Evaluation - Re-Evaluation 1st re-eval Re-Evaluation Time: 23:16 Change: Improved Comment: I have discussed results with the patient and chest pain is resolved. Discussed symptoms that warrant immediate return to ED. Instructed him to find a new primary to be seen within 1 week. Chest Pain Course/Dx - Course Course Of Treatment: 40-year-old male presents with chest pain. Worse after eating. He states he has a history of Bartter's syndrome. Has chronic low magnesium and potassium. Patient states he's been off his medication for many weeks now after moving here. Has not established with a primary. He denies any other significant review of systems. Workup demonstrated slow magnesium and potassium. Chest x-ray within normal limits. Patient given doses of magnesium and potassium here. Prescription is called in. Establish primary. Follow-up with PCP within one week. Follow-up sooner for any worsening symptoms. - Diagnoses Provider Diagnoses: Chest pain Discharge ED - Sign-Out/Discharge Documenting (check all that apply): Patient Departure - Discharge Plan Condition: Stable Disposition: HOME Prescriptions: Ibuprofen TAB* [Advil TAB*] 800 mg PO ONCE PRN #30 tab PRN Reason: Pain Magnesium CITRATE* [Citrate of Magnesia*] 300 ml PO ONCE #1 btl Potassium Chlor TAB* [Potassium Chlor TAB 20 MEQ*] 40 meq PO BID #60 tab.er Patient Education Materials: Chest Pain (ED) Referrals: [facility] [Outside] [facility] [place] [facility] [Outside] Additional Instructions: Please follow up with [facility] to find a new primary care provider to be seen within the coming week. Please return to ED for any new or worsening symptoms. - Billing Disposition and Condition Condition: STABLE Disposition: Home - Attestation Statements Document Initiated by Scribe: Yes Documenting Scribe: Francy Real Provider For Whom Scribe is Documenting (Include Credential): Brianna Lee MD. Scribe Attestation: IFrancy, scribed for Brianna Lee MD. on 03/24/19 at 0020. Scribe Documentation Reviewed: Yes Provider Attestation: The documentation as recorded by the scribeFrancy accurately reflects the service I personally performed and the decisions made by me, Brianna Lee MD. Status of Scribe Document: Viewed
[2019-03-23 21:57] LABS: Albumin 4.6 g/dL (3.2-5.2); Albumin/Globulin Ratio 1.1 (1-3); BUN/Creatinine Ratio 18.8 (8-20); Calcium 10.1 mg/dL (8.6-10.3); EGFR African American 88.6 (>60); EGFR Non-African American 73.2 (>60); Globulin 4.1 g/dL (2-4); Magnesium 1.3 mg/dL (1.9-2.7); Potassium 2.8 mmol/L (3.5-5.0); Total Bilirubin 0.3 mg/dL (0.2-1.0); Total Protein 8.7 g/dL (6.4-8.9)
[2019-03-23 21:59] LABS: Troponin I 0.01 ng/mL (<0.03)
[2019-03-23] MEDS ORDERED: Potassium Chlor TAB* 20 MEQ TAB.ER PO ONE (22:37)
[2019-03-23] MEDS ORDERED: Magnesium Chloride EC TAB* 64 MG PO ONE (22:37)
[2019-03-23 23:34] VITALS: BP 131/74
== END 2019-03-23 23:34 | disposition home or self-care (01) ==
LOC: ED 21:11
DX: R07.9 Chest pain, unspecified (principal); F17.210 Nicotine dependence, cigarettes, uncomplicated; Z79.899 Other long term (current) drug therapy; Z88.5 Allergy status to narcotic agent
CPT/HCPCS: 36415; 71045; 80053; 83735; 84484; 85025; 85610; 93005; 99283

== ENCOUNTER 2019-11-20 21:19 | Inpatient (IN) ==
[2019-11-21 00:45] LABS: ABS Basophils 0.2 10^3/ul (0-0.2); ABS Lymphocytes 3.6 10^3/ul (1.0-4.8); ABS Monocytes 1.3 10^3/ul (0-0.8); ABS Neutrophils 9.7 10^3/ul (1.5-7.7); Eosinophil % 6.3 %; Hematocrit 37 % (42-52); Mean Corpuscular HGB Conc 35 g/dL (31-36); Mean Corpuscular Hemoglobin 30 pg (27-31); Mean Corpuscular Volume 87 fL (80-94); Mean Platelet Volume 8.3 fL (7.4-10.4); Platelet Count 281 10^3/uL (150-450); Red Blood Count 4.28 10^6 /uL (4.18-5.48); Red Cell Distribution Width 14 % (10-15); White Blood Count 15.7 10^3/uL (3.5-10.8)
[2019-11-21 00:59] LABS: Albumin 4.2 g/dL (3.2-5.2); Albumin/Globulin Ratio 1.2 (1-3); BUN/Creatinine Ratio 13.3 (8-20); C Reactive Protein 87.75 mg/L (<8.01); Calcium 9.2 mg/dL (8.6-10.3); EGFR African American 75.1 (>60); EGFR Non-African American 62.1 (>60); Globulin 3.5 g/dL (2-4); Total Bilirubin 0.3 mg/dL (0.2-1.0); Total Protein 7.7 g/dL (6.4-8.9)
[2019-11-21 01:04] LABS: Potassium 2.5 mmol/L (3.5-5.0)
[2019-11-21] MEDS ORDERED: Clindamycin 300 MG IVPREMIX 300 MG/50 ML SDV IVPB ONE (01:54)
[2019-11-21 02:14] LABS: Erythrocyte Sed Rate 59 mm/Hr (0-14)
[2019-11-21] MEDS ORDERED: Potassium Chlor 20 meq TAB.ER PO ONE ×2 (02:19→09:16)
[2019-11-21] MEDS ORDERED: Nicotine GUM 4MG FRUIT FLAVOR PO PRN (02:56)
[2019-11-21] MEDS ORDERED: NS 0.9% w/ 20 Meq KCL 1000 ml 1,000 ML IV SCH (03:00)
[2019-11-21 03:07] LABS: Magnesium 1.2 mg/dL (1.9-2.7)
[2019-11-21] MEDS ORDERED: Magnesium Sulfate IV 3 GM in NS 0.9% 100 ml BAG 100 ML IVPB ONE (03:26)
[2019-11-21] MEDS: oxyCODONE/Acetamin 5/325 mg TAB PO PRN ×2 (03:39→14:03)
[2019-11-21] MEDS: Nicotine PATCH 21 MG/24 HR PATCH TRANSDERM SCH ×2 (05:31→08:12)
[2019-11-21] MEDS: KCL 20 MEQ/100 ML IVPREMIX 20 MEQ/100 ML BAG IV SCH ×2 (05:34→12:25)
[2019-11-21] MEDS: Buprenorp/Nalox 8-2 MG SL TAB SL SCH ×3 (09:20→20:18)
[2019-11-21] MEDS ORDERED: Propofol 10 MG/ML 20 ML BTL ONE (10:00)
[2019-11-21] MEDS ORDERED: Lidocaine 2% PF 5 ML VIAL ONE (10:00)
[2019-11-21] MEDS ORDERED: Dexmedetomidine 200 mcg/2 ml 2 ml VIAL (200 mcg) ONE (10:00)
[2019-11-21] MEDS ORDERED: Bupivacaine 0.5% SDV PF 30ML VIAL ONE (10:00)
[2019-11-21 10:02] LABS: Uric Acid 9.4 mg/dL (4.4-7.6)
[2019-11-21] MEDS ORDERED: Ondansetron 4 mg VIAL 2 MG/ML 2 ml VIAL IV PRN (11:33)
[2019-11-21] MEDS ORDERED: Clindamycin 600 MG/D5W BAG 600 MG/50 ML BAG IV SCH (12:00)
[2019-11-21] MEDS ORDERED: ceFAZolin 1 GM* Q8H (AddVan) IVPB SCH (14:30)
[2019-11-21] MEDS: ceFAZolin 1 GM* Q8H (AddVan) IVPB SCH (20:24)
[2019-11-22] MEDS: oxyCODONE/Acetamin 5/325 mg TAB PO PRN ×5 (03:24→21:12)
[2019-11-22] MEDS: ceFAZolin 1 GM* Q8H (AddVan) IVPB SCH ×3 (03:25→19:29)
[2019-11-22 06:28] LABS: BUN/Creatinine Ratio 16.3 (8-20); C Reactive Protein 74.05 mg/L (<8.01); Calcium 9.3 mg/dL (8.6-10.3); EGFR African American 108.7 (>60); EGFR Non-African American 89.8 (>60); Magnesium 1.7 mg/dL (1.9-2.7); Phosphorus 3.1 mg/dL (2.5-5.0); Potassium 2.9 mmol/L (3.5-5.0)
[2019-11-22 06:30] LABS: ABS Basophils 0.1 10^3/ul (0-0.2); ABS Eosinophils 0.6 10^3/ul (0-0.6); ABS Neutrophils 8.2 10^3/ul (1.5-7.7); Eosinophil % 5.3 %; Hematocrit 36 % (42-52); Hemoglobin 12.7 g/dL (14.0-18.0); Lymphocyte % 17.1 %; Mean Corpuscular HGB Conc 35 g/dL (31-36); Mean Corpuscular Hemoglobin 31 pg (27-31); Mean Corpuscular Volume 88 fL (80-94); Mean Platelet Volume 8.4 fL (7.4-10.4); Nucleated Red Blood Cells % 0.1; Platelet Count 250 10^3/uL (150-450); Red Blood Count 4.12 10^6 /uL (4.18-5.48); Red Cell Distribution Width 14 % (10-15)
[2019-11-22] MEDS ORDERED: Magnesium Sulf 4 GM/100 ML IV 4,000 MG/100 ML BAG IVPB ONE (07:30)
[2019-11-22] MEDS: Nicotine PATCH 21 MG/24 HR PATCH TRANSDERM SCH (08:03)
[2019-11-22] MEDS: Potassium Chlor 20 meq TAB.ER PO SCH (08:04)
[2019-11-22] MEDS: Buprenorp/Nalox 8-2 MG SL TAB SL SCH ×3 (10:33→21:13)
[2019-11-22] MEDS: KCL 20 MEQ/100 ML IVPREMIX 20 MEQ/100 ML BAG IV SCH ×3 (11:29→18:21)
[2019-11-22] MEDS ORDERED: oxyCODONE/Acetamin 5/325 mg TAB PO PRN (16:14)
[2019-11-23] MEDS: oxyCODONE/Acetamin 5/325 mg TAB PO PRN ×4 (01:19→13:29)
[2019-11-23] MEDS: ceFAZolin 1 GM* Q8H (AddVan) IVPB SCH ×2 (03:42→11:47)
[2019-11-23 06:20] LABS: ABS Basophils 0.1 10^3/ul (0-0.2); ABS Eosinophils 0.7 10^3/ul (0-0.6); ABS Lymphocytes 2.4 10^3/ul (1.0-4.8); ABS Neutrophils 5.3 10^3/ul (1.5-7.7); Eosinophil % 7.8 %; Hematocrit 35 % (42-52); Hemoglobin 12.2 g/dL (14.0-18.0); Lymphocyte % 25.3 %; Mean Corpuscular HGB Conc 35 g/dL (31-36); Mean Corpuscular Hemoglobin 30 pg (27-31); Mean Corpuscular Volume 87 fL (80-94); Mean Platelet Volume 8.5 fL (7.4-10.4); Platelet Count 293 10^3/uL (150-450); Red Blood Count 4.02 10^6 /uL (4.18-5.48); Red Cell Distribution Width 14 % (10-15); White Blood Count 9.5 10^3/uL (3.5-10.8)
[2019-11-23 06:38] LABS: BUN/Creatinine Ratio 15.1 (8-20); C Reactive Protein 73.19 mg/L (<8.01); Calcium 9.5 mg/dL (8.6-10.3); EGFR African American 99.3 (>60); Magnesium 1.7 mg/dL (1.9-2.7); Potassium 3.1 mmol/L (3.5-5.0)
[2019-11-23] MEDS ORDERED: Potassium Chloride LIQUID 20 MEQ/15 ML LIQUID PO ONE ×2 (08:02→11:00)
[2019-11-23] MEDS ORDERED: Magnesium Sulfate IV 3 GM in NS 0.9% 100 ml BAG 100 ML IVPB ONE (08:22)
[2019-11-23] MEDS: Potassium Chlor 20 meq TAB.ER PO SCH (09:17)
[2019-11-23] MEDS: Nicotine PATCH 21 MG/24 HR PATCH TRANSDERM SCH (09:18)
[2019-11-23] MEDS: Buprenorp/Nalox 8-2 MG SL TAB SL SCH ×2 (09:18→13:29)
[2019-11-23 12:00] VITALS: BP 119/58
== END 2019-11-23 16:15 | disposition home or self-care (01) | DRG 316 ==
LOC: ED 21:19 → SSU 21:19
PROVIDERS: ADMIT Internal Medicine; ATTEND Internal Medicine